=== PATIENT | female | born 1950 | race Caucasian/White ===

== ENCOUNTER 2024-08-14 11:45 | Outpatient (AMB) | payer MEDICARE, SELFPAY ==
--- NOTE | 2024-08-14 11:46 | AM.OFFWIN_ITS ---
Intake Vital Signs 08/14/24 11:51 Height 5 ft 4 in Weight 239 lb BMI 41.0 BP 134/72 Blood Pressure Location Lt brachial Position Sitting Respiration 13 Pulse 75 Pulse Source Pulse Oximeter Pulse Oximetry (%) 98 Oxygen Delivery Method Room Air Intake Visit Reasons: SINUS/LEFT EAR HARD OF HEARING Intake Note: Patient complaining of left ear hard of hearind and ringing in the ear, patient also complaining of pressure on left side of the face x1 week. Administrative Analyst Required: No Allergies No Known Allergies Allergy (Verified 08/14/24 11:55) Medication List - Last Reconciled 08/14/24 by Lisseth Perdomo, [employer]- amlodipine 10 mg PO DAILY hydrochlorothiazide 12.5 mg PO DAILY losartan 25 mg PO DAILY Do you need a note to return to daycare/school/sports/work: No HPI HPI Comments History of Present Illness Details A 74-year-old female with sleep apnea here today with complaints of blocked sensation in the left ear. She reports that she was in her normal state of health until 1 week ago when she started to develop fullness and pressure in the left side of her face, namely over the left cheek. As the days progressed she developed blocked sensation in the left ear. She has mild blocked sensation in the right ear. She also has some ringing in the left ear. She has been using [id number] Benadryl, a decongestant and Flonase which seems to provide short-lived relief. She denies any fever, chills, cough. She has not been able to use her CPAP for the last 2 nights given her symptoms. Exam Awake alert NAD Sclera and conjunctiva clear bilat Nares clear, turbinates edematous bilat L>R + sinus tenderness L maxillary sinus with palpation TM intact and clear on right; TM intact, loss of landmarks, bulging on L MMM, pharynx WNL RRR LS CTAB Plan: Advised to discontinue use of Benadryl and decongestant. Okay to continue to use Flonase. She has at-home nasal lavage system and that is okay to use as well. I will prescribe Augmentin to treat for a sinus infection. Advised to take with food. Educated that Eustachian tube dysfunction can last for several weeks even after the bacterial infection is resolved. Encouraged to use self insufflation to help. In regards to not being able to use her CPAP machine given the nasal congestion, told her it is okay to use Afrin immediately before use of her CPAP with the next night or 2 if needed. Advised not to use long- term. Educated on reasons to return to the office or seek additional care This note is constructed using voice recognition software. While every effort has been made to ensure accuracy in machine preservative filler, still errors may have been included Sometimes, these errors may affect the content or meaning of the given sentence . Physical Exam Vital Signs: Last Vital Signs Pulse 75 08/14/24 11:51 Resp 13 08/14/24 11:51 BP 134/72 08/14/24 11:51 Pulse Ox 98 08/14/24 11:51 Oxygen Delivery Method Room Air 08/14/24 11:51 BMI result Body Mass Index 41.0 Assessment & Plan Assessment & Plan (1) Sinusitis: Code(s): J32.9 - Chronic sinusitis, unspecified Qualifiers: Sinusitis location: maxillary Chronicity: acute Recurrence: non- recurrent Qualified Code(s): J01.00 - Acute maxillary sinusitis, unspecified (2) Dysfunction of left eustachian tube: Code(s): H69.92 - Unspecified Eustachian tube disorder, left ear Plan . Medications: New amoxicillin-pot clavulanate 875-125 mg 1 tab PO BID 7 days 14 tabs 0RF Coding Level of Care Code Est Pt Level 3 (05038) Diagnoses Acute non-recurrent maxillary sinusitis J01.00 Sinusitis location: maxillary Chronicity: acute Recurrence: non-recurrent Dysfunction of left eustachian tube H69.92
[2024-08-14 11:51] VITALS: BP 134/72; PULSE 75; RESP 13; O2SAT 98; BMI 41.0
== END 2024-08-14 12:07 | disposition home or self-care (01) ==
LOC: HO.HMCWIW 11:45
PROVIDERS: Visit Provider Nurse Practitioner Family
DX: J01.00 Acute maxillary sinusitis, unspecified (principal); H69.92 Unspecified Eustachian tube disorder, left ear

== ENCOUNTER → 2024-08-14 11:45 | Outpatient (BNVA) | payer MEDICARE, SELFPAY | PROVIDERS: Visit Provider Nurse Practitioner Family | DX: J01.00 Acute maxillary sinusitis, unspecified (principal); H69.92 Unspecified Eustachian tube disorder, left ear | CPT/HCPCS: 99212 ==